=== PATIENT | female | born 1935 | race Caucasian/White ===

== ENCOUNTER 2017-07-08 00:15 | Observation (INO) | payer MEDICARE, BC ==
[2017-07-08] VITALS (13 sets, daily range): BP systolic 155–189; BP diastolic 65–85
[~2017-07-08] VITALS: Ht 160 cm; Wt 56.2 kg
[~2017-07-08 00:15] MED LIST: ACET-1966 PO; AMLO-96 PO; CALC3.7S6; CEPH-13 PO; CYCL10TA29 PO; HYDR-4309 PO; INDO50CA92 PO; LOSA50TA72 PO; POLY17PO25 PO; TRAM-420 PO
[2017-07-08] MEDS ORDERED: ONDANSETRON 4 MG/2 ML VIAL ONE (08:45)
[2017-07-08] MEDS ORDERED: PROPOFOL EMUL(*) 10MG/ML 20 ML 20 ML ONE (08:45)
[2017-07-08] MEDS ORDERED: DEXAMETHASONE SOD 4 MG/ML VIAL ONE (08:45)
[2017-07-08] MEDS ORDERED: LIDOCAINE MPF 1% 5 ML VIAL ONE (08:45)
[2017-07-08] MEDS ORDERED: fentaNYL CITR 250 MCG/5 ML AMP ONE ×2 (08:48)
[2017-07-08] MEDS ORDERED: BUPIVACAIN 0.25% INJ 50ML VIAL ONE (10:06)
[2017-07-08] MEDS ORDERED: THROMBIN (BOVINE) 20,000 UNIT VIAL ONE (10:07)
[2017-07-08] MEDS ORDERED: LIDOCAINE/SOD BICARB 8.4% SYR ID ONE (10:30)
[2017-07-08] MEDS ORDERED: FAMOTIDINE 20 MG TAB PO ONE (10:30)
[2017-07-08] MEDS ORDERED: MIDAZOLAM 2 MG/2 ML VIAL IVP ONE (10:30)
[2017-07-08] MEDS ORDERED: NORMOSOL R SOLN(*) 1000 ML BAG 1,000 ML IV PRN (10:30)
[2017-07-08] MEDS ORDERED: ceFAZolin(*) 2GM/D5W 50ML 50 ML IVPB ONE (10:30)
[2017-07-08] MEDS ORDERED: SUGAMMADEX SOD 200 MG/2 ML SDV ONE (11:09)
[2017-07-08] MEDS ORDERED: ROCURONIUM BROM 10 MG/ML 5 ML ONE (11:15)
[2017-07-08] MEDS ORDERED: ESMOLOL 10 MG/ML 10ML SDV ONE (11:32)
[2017-07-08] MEDS ORDERED: NS 0.9% 20 ML SDV 20 ML ONE (12:02)
--- NOTE | 2017-07-08 13:22 | RADIOLOGY IMAGING REPORT ---
FACILITY: [facility] PATIENT NAME: Hamida De Luna : 1935 MR: [id number] V: [id number] EXAM DATE: ORDERING PHYSICIAN: SOL NATARAJAN TECHNOLOGIST: Location: [facility] Patient: Hamida De Luna : 1935 Visit/Account:[id number] Date of Sevice: 07/08/2017 LUMBAR SPINE 1 VIEW Provided history: L4-5 LAMINECTOMY Additional pertinent history: none Views obtained: 2 lateral views COMPARISON STUDIES: 09/11/16 FINDINGS: 2 intraoperative lateral views are received. First view demonstrates a probe posteriorly at the mid L3 level. Second view demonstrates a probe at the lower L4 level overlying the L4 spinous process. There is a moderate anterior compression deformity at the L1 level that is new from 09/11/16. Margin s are relatively smooth. IMPRESSION: 1. Second lateralizing view demonstrates the tip of the probe over the mid L4 level. 2. Moderate anterior compression deformity at L1 is new from 09/11/16. Report Dictated By: Nish Garza MD at 07/08/2017 1:16 PM Report E-Signed By: Nish Garza MD at 07/08/2017 1:18 PM [id number]
[2017-07-08] MEDS ORDERED: fentaNYL CITR 100 MCG/2 ML AMP ONE (13:30)
[2017-07-08] MEDS ORDERED: BENZOCAINE/MENTHOL 1 EACH LOZG PO PRN (13:35)
[2017-07-08] MEDS ORDERED: ACETAMINOPHEN(*)1000 MG/100 ML 100 ML IVPB PRN (13:35)
[2017-07-08] MEDS ORDERED: diphenhydrAMINE 25 MG CAP PO PRN (13:35)
[2017-07-08] MEDS ORDERED: BISACODYL 10 MG SUPP PR PRN (13:35)
[2017-07-08] MEDS ORDERED: MAGNESIUM HYDROXIDE* 30ML UDCP PO PRN (13:35)
[2017-07-08] MEDS ORDERED: oxyCODONE HCL 5 MG CAP PO PRN (13:35)
[2017-07-08] MEDS ORDERED: ACETAMINOPHEN 500 MG TAB PO PRN (13:35)
[2017-07-08] MEDS ORDERED: ONDANSETRON 4 MG/2 ML VIAL IVP PRN (13:35)
[2017-07-08] MEDS ORDERED: FLUSH 10 ML SYR IVP PRN (13:35)
[2017-07-08] MEDS ORDERED: LR(*) 1000 ML BAG 1,000 ML IV PRN (13:35)
[2017-07-08] MEDS ORDERED: HYDROmorphone HCL 2 MG/ML SDV IVP PRN (13:35)
[2017-07-08] MEDS ORDERED: DIAZEPAM 5 MG TAB PO PRN (13:35)
--- NOTE | 2017-07-08 15:05 | Hospitalist Progress Note ---
Subjective Progress Notes Subjective Patient seen post-op. Reviewed PMHx (HTN) and medications (losartan). At present she only c/o some pain in surgical site. No CP/SOB/N/V. Physical Exam Vital Signs Date Time Temp Pulse Resp B/P (MAP) Pulse Ox O2 Delivery O2 Flow Rate FiO2 07/08/17 14:50 91 07/08/17 14:45 59 16 167/72 (103) Nasal Cannula 0.5 07/08/17 14:21 96.9 Intake and Output 07/09/17 07:00 Intake Total 1550 ml Balance 1550 ml Intake IV Total 1550 ml # Voids 1 General Appearance: Alert, Awake Cardiovascular: Regular Rate and Rhythm Respiratory: Clear to Auscultation Assessment and Plan Problems: (1) HTN (hypertension) Status: Chronic Assessment & Plan: Will monitor BPs and resume her losartan as needed. Exam Sepsis Risk: No Definite Risk RADHA SOW MD Jul 08, 2017 15:05
--- NOTE | 2017-07-08 19:28 | OPERATIVE REPORT 1 ---
EVENT DATE: July 08, 2017 SURGEON: Alvarez Levine MD ANESTHESIOLOGIST: Alessandro Slater MD ANESTHESIA: General endotracheal anesthesia. PATTERN ATTENDANT: Dusty Lee PA-C PREOPERATIVE DIAGNOSIS L4-L5 spinal stenosis with neurogenic claudication. POSTOPERATIVE DIAGNOSIS L4-L5 spinal stenosis with neurogenic claudication. PROCEDURE PERFORMED L4-L5 laminectomy. INTRAVENOUS FLUIDS 900 mL ESTIMATED BLOOD LOSS 50 mL IMPLANTS None. SPECIMENS None. DRAINS None. COMPLICATIONS None. DISPOSITION Post-anesthesia care unit. INDICATIONS FOR SURGERY Ms. De Luna is an 82-year-old female who presented with left greater than right lower extremity radiating pain, numbness, and tingling. She had decreased walking tolerance secondary to her leg symptoms. Her physical examination was essentially normal, but her imaging studies showed moderate-to- severe bilateral lateral recess and foraminal stenosis at the L4-L5 level. Secondary to ongoing symptoms despite physical therapy, medications, and activity modification, Ms. De Luna was offered and elected to undergo L4-L5 laminectomy. CONSENT Prior to surgery, I explained in detail to the patient the possible risks of surgery including the risk of nerve injury, persistent and/or worsening pain, spinal fluid leak, infection and/or meningitis, excessive bleeding, paralysis, , blindness, sexual dysfunction, blood vessel injury, injury to neighboring organs, need for further surgery, bowel and bladder dysfunction, autonomic nervous system dysfunction, instability, and potential for unforeseen medical and surgical complications. An understanding that in general spinal surgery is more predictive in improving extremity discomfort than actual spine pain and arresting the progression of spinal cord dysfunction rather than improving it was stressed. DESCRIPTION OF PROCEDURE On the day of surgery, the patient was met in the preop hold area, and all questions were answered. She was then taken to the operating room, and after identification of the patient and the operative site, administration of antibiotics, and completion of anesthesia, the patient was prepped and draped in the prone position on a Mike table. During this time and the entire operation, care was taken to maintain appropriate perfusion pressures during anesthesia. All bony protuberances and soft tissues were well padded in the standard fashion. Pre- and intraoperatively, prophylactic antibiotics were administered according to the appropriate timing schedule. At the conclusion of the procedure, the sponge and needle counts were correct times two. Final timeout was undertaken by the members of the operating team. We confirmed correct patient, correct levels, and correct surgery. An incision was then made in the skin over the intended surgical levels, and dissection was carried down through the subcutaneous tissues to the level of the deep fascia. The deep fascia was elevated off the posterior elements in a subperiosteal manner. An intraoperative radiograph was obtained to confirm correct spinal level. Once the appropriate spinal levels were identified with intraoperative imaging, a rongeur was used to remove the spinous process of L4. Once this was completed , the laminae were thinned bilaterally with the use of a rongeur. A small curette was then used to undermine the insertion of the ligamentum flavum on the inferior aspect of the L4 lamina. All dural adhesions were freed from the surrounding bone and ligaments with the use of a [place] prior to the use of a Kerrison punch. A 4.0 Kerrison punch was then used to perform a midline decompression. A bilateral lateral recess decompression was performed with the 3.0 and 4.0 Kerrison rongeurs to decompress thoroughly the lateral recess at L4- L5, followed by foraminotomies of the L4 nerve roots. An angled dura elevator was then passed around the exiting nerve roots at L4 and L5 to confirm they were free without any compression. Once the decompression was completed, meticulous hemostasis was obtained. The wound was irrigated with copious sterile saline solution and then closed in layers using interrupted sutures for the deep fascia, interrupted sutures for the subcutaneous tissue, and a running subcuticular skin stitch. Sponge and needle counts were correct times two. POSTOPERATIVE CARE PLAN The patient will remain in the hospital overnight and until she is ambulating freely, tolerating p.o., voiding spontaneously, and has good pain control on oral pain meds. She will then be discharged home and will follow up with me in two weeks' time for wound check and examination. JESSICA
[2017-07-08] MEDS: ceFAZolin(*) 2GM/D5W 50ML 50 ML IVPB SCH (20:45)
[2017-07-08] MEDS: DOCUSATE SODIUM 100 MG CAP PO SCH (20:45)
[2017-07-08] MEDS: APAP/HYDROCODONE 325/5 TAB PO PRN (20:46)
[2017-07-09] MEDS: APAP/HYDROCODONE 325/5 TAB PO PRN (03:58)
[2017-07-09] MEDS: ceFAZolin(*) 2GM/D5W 50ML 50 ML IVPB SCH (03:59)
[2017-07-09 04:07] VITALS: BP 135/61
[2017-07-09 07:29] VITALS: BP 155/76
[2017-07-09] MEDS ORDERED: DOCU240C84 PO (07:35)
[2017-07-09] MEDS ORDERED: DIA5 PO (07:37)
[2017-07-09] MEDS ORDERED: HYDR-385 PO (07:38)
--- NOTE | 2017-07-09 07:52 | Hospitalist Progress Note ---
Subjective Progress Notes Subjective She reports doing well. No complaints this AM. Physical Exam Vital Signs Date Time Temp Pulse Resp B/P (MAP) Pulse Ox O2 Delivery O2 Flow Rate FiO2 07/09/17 07:33 91 Room Air 07/09/17 07:29 97.3 60 18 155/76 (102) 0.5 General Appearance: Alert, Awake Cardiovascular: Regular Rate and Rhythm Respiratory: Clear to Auscultation Assessment and Plan Problems: (1) HTN (hypertension) Status: Chronic Assessment & Plan: Continue her losartan. Exam Sepsis Risk: No Definite Risk RADHA SOW MD Jul 09, 2017 07:52
[2017-07-09] MEDS: DOCUSATE SODIUM 100 MG CAP PO SCH (08:16)
[2017-07-09] MEDS ORDERED: LOSARTAN POTASSIUM 50 MG TAB PO SCH (09:00)
[2017-07-09 09:03] VITALS: Ht 160 cm; Wt 56.2 kg
== END 2017-07-09 07:39 | disposition home or self-care (01) ==
LOC: OR 00:15 → MED 14:15
PROVIDERS: ADMIT Orthopaedic Surgery; ATTEND Orthopaedic Surgery
DX: M48.062 Spinal stenosis, lumbar region with neurogenic claudication (principal)
CPT/HCPCS: 63030; 72020; 97116; 97161; 97530; A9270; G0378; J1100; J2001; J2405; J2704; J3010; J3490; J7050; J0690

== ENCOUNTER 2017-07-23 10:12 | Emergency (ER) | payer MEDICARE, BC ==
[2017-07-09 09:03] VITALS: Ht 160 cm; Wt 56.2 kg
[~2017-07-23] VITALS: Ht 160 cm; Wt 56.2 kg
[~2017-07-23 10:12] MED LIST changes: +DIA5 PO; +DOCU240C84 PO; +HYDR-385 PO
--- NOTE | 2017-07-23 10:40 | ER Report ---
History and Physical Time Seen By MD: 10:39 Hx. of Stated Complaint: PT HAD A LAMINECTOMY LAST WEEK; HAS FALLEN AT HOME SEVERAL TIMES SINCE, DENIES HITTING HEAD OR ANY LOC HPI/ROS This is an otherwise very active 79-year-old female who underwent a laminectomy approximately one week ago. She was given hydrocodone for pain control. For the past few days she has noted that she feels unsteady and somewhat lightheaded when ambulating. She had 3 falls at home, and currently complains of very mild pain in her right hip. She is able to ambulate with pain. Other injuries. She realized yesterday that it could be narcotics making her feel unsteady so she stopped taking the narcotics at which time she felt better. Came to the ED juts to make sure she was otherwise okay. Allergies: Coded Allergies: No Known Drug Allergies (Unverified , 07/01/17) Home Meds Reported Medications Hydrocodone Bit/Acetaminophen (HYDROCODON-ACETAMINOPHEN 5-325) 1 Each Tablet, 1- 2 EACH PO Q6H Y for PAIN, #12 TAB 07/09/17 Losartan Potassium (LOSARTAN POTASSIUM) 50 Mg Tablet, 0.5 TAB PO QDAY 07/01/17 Discontinued Reported Medications Diazepam (VALIUM) 5 Mg Tablet, 5 MG PO Q8H Y for SPASMS, #15 TAB 07/09/17 Docusate Calcium (SURFAK) 240 Mg Capsule, 240 MG PO DAILY, CAPSULE 07/09/17 Hx Smoking: Yes (5 cig per day) Smoking Status: Current: Every Day Smoker, Light Tobacco Smoker Exposure to Second Hand Smoke?: Yes Hx Substance Use Disorder: No Hx Alcohol Use: Yes Constitutional Vital Sign - Last 24 Hours 07/23/17 07/23/17 07/23/17 07/23/17 10:12 10:20 10:27 10:30 Temp 97.7 Pulse ??? 77 ??? Resp 18 B/P (MAP) 163/81 163/81 (108) 152/84 (106) Pulse Ox 90 O2 Delivery Room Air 07/23/17 07/23/17 07/23/17 07/23/17 10:42 10:57 11:00 11:12 Pulse 72 68 66 B/P (MAP) 157/79 (105) Pulse Ox 91 94 93 07/23/17 07/23/17 07/23/17/18/18 11:27 11:30 11:42 11:47 Pulse 68 ? B/P (MAP) 159/76 (103) Pulse Ox 93 07/23/17 07/23/17 07/23/17 07/23/17 12:00 12:02 12:17 12:30 Pulse ? B/P (MAP) ???/??? (1665) ???/??? (1665) 07/23/17 07/23/17 07/23/17 07/23/17 12:32 12:47 13:02 13:03 Pulse ? B/P (MAP) 147/141 (143) 07/23/17 13:17 Pulse ??? Physical Exam General Appearance: The patient is alert, has no immediate need for airway protection and no current signs of toxicity. Eyes: Pupils equal and round no injection. Respiratory: Chest is non tender, lungs are clear to auscultation. Cardiac: regular rate and rhythm Gastrointestinal: Abdomen is soft and non tender, no masses, bowel sounds normal. Musculoskeletal: Well healing surgical incision on l-spine Neck: Neck is supple and non tender. Extremities have full range of motion and are non tender. Skin: No rashes or lesions. DIFFERENTIAL DIAGNOSIS: After history and physical exam differential diagnosis was considered for weakness including but not limited to electrolyte abnormality , depression, anxiety, CVA, spinal cord abnormality, and infectious causes. Medical Decision Making Data Points Result Diagram: 07/23/17 1145 07/23/17 1145 Laboratory Hematology Test 07/23/17 11:40 07/23/17 11:45 Urine Color Yellow Urine Clarity Clear Urine pH 7.0 pH (4.8-9.5) Urine Specific [place] 1.011 Urine Protein 30 mg/dL (NEGATIVE) Urine Glucose (UA) Negative mg/dL (NEGATIVE) Urine Ketones Negative mg/dL (NEGATIVE) Urine Blood Negative (NEGATIVE) Urine Nitrite Negative (NEGATIVE) Urine Bilirubin Negative (NEGATIVE) Urine Urobilinogen Negative mg/dL (0.2-1.9) Urine Leukocyte Esterase Negative (NEGATIVE) Urine RBC 1 /HPF (0-2/HPF) Urine WBC 1 /HPF (0-5/HPF) Urine Squamous Epithelial Cells None /LPF (NONE-FEW) Urine Bacteria Negative /HPF (NONE-FEW) Urine Mucus None /HPF (NONE-FEW) Red Blood Count 4.19 M/uL (4.17-5.56) Mean Corpuscular Volume 94.0 fL (80.0-96.0) Mean Corpuscular Hemoglobin 31.6 pg (26.0-33.0) Mean Corpuscular Hemoglobin Concent 33.6 g/dL (32.0-36.0) Red Cell Distribution Width 13.4 % (11.5-14.5) Mean Platelet Volume 8.5 fL (7.2-11.1) Neutrophils (%) (Auto) 64.2 % (39.4-72.5) Lymphocytes (%) (Auto) 24.1 % (17.6-49.6) Monocytes (%) (Auto) 6.8 % (4.1-12.4) Eosinophils (%) (Auto) 3.9 % (0.4-6.7) Basophils (%) (Auto) 1.0 % (0.3-1.4) Nucleated RBC Relative Count (auto) 0.0 /100WBC Neutrophils # (Auto) 4.4 K/uL (2.0-7.4) Lymphocytes # (Auto) 1.7 K/uL (1.3-3.6) Monocytes # (Auto) 0.5 K/uL (0.3-1.0) Eosinophils # (Auto) 0.3 K/uL (0.0-0.5) Basophils # (Auto) 0.1 K/uL (0.0-0.1) Nucleated RBC Absolute Count (auto) 0.00 K/uL Sodium Level 139 mmol/L (137-145) Potassium Level 4.6 mmol/L (3.5-5.0) Chloride Level 103 mmol/L (98-107) Carbon Dioxide Level 26 mmol/L (22-31) Blood Urea Nitrogen 14 mg/dl (7-18) Creatinine 0.80 mg/dl (0.52-1.04) Glomerular Filtration Rate Calc > 60.0 Random Glucose 100 mg/dl (75-110) Calcium Level 9.6 mg/dl (8.4-10.2) Total Bilirubin 0.7 mg/dl (0.2-1.3) Aspartate Amino Transf (AST/SGOT) 27 U/L (0-35) Alanine Aminotransferase (ALT/SGPT) 35 U/L (0-56) Alkaline Phosphatase 149 U/L (0-126) Total Protein 8.0 gm/dl (6.3-8.2) Albumin 4.1 g/dl (3.5-5.0) Chemistry Test 07/23/17 11:40 07/23/17 11:45 Urine Color Yellow Urine Clarity Clear Urine pH 7.0 pH (4.8-9.5) Urine Specific [place] 1.011 Urine Protein 30 mg/dL (NEGATIVE) Urine Glucose (UA) Negative mg/dL (NEGATIVE) Urine Ketones Negative mg/dL (NEGATIVE) Urine Blood Negative (NEGATIVE) Urine Nitrite Negative (NEGATIVE) Urine Bilirubin Negative (NEGATIVE) Urine Urobilinogen Negative mg/dL (0.2-1.9) Urine Leukocyte Esterase Negative (NEGATIVE) Urine RBC 1 /HPF (0-2/HPF) Urine WBC 1 /HPF (0-5/HPF) Urine Squamous Epithelial Cells None /LPF (NONE-FEW) Urine Bacteria Negative /HPF (NONE-FEW) Urine Mucus None /HPF (NONE-FEW) White Blood Count 6.9 k/uL (4.5-11.0) Red Blood Count 4.19 M/uL (4.17-5.56) Hemoglobin 13.2 g/dL (12.0-16.0) Hematocrit 39.4 % (34.0-47.0) Mean Corpuscular Volume 94.0 fL (80.0-96.0) Mean Corpuscular Hemoglobin 31.6 pg (26.0-33.0) Mean Corpuscular Hemoglobin Concent 33.6 g/dL (32.0-36.0) Red Cell Distribution Width 13.4 % (11.5-14.5) Platelet Count 281 K/uL (150-450) Mean Platelet Volume 8.5 fL (7.2-11.1) Neutrophils (%) (Auto) 64.2 % (39.4-72.5) Lymphocytes (%) (Auto) 24.1 % (17.6-49.6) Monocytes (%) (Auto) 6.8 % (4.1-12.4) Eosinophils (%) (Auto) 3.9 % (0.4-6.7) Basophils (%) (Auto) 1.0 % (0.3-1.4) Nucleated RBC Relative Count (auto) 0.0 /100WBC Neutrophils # (Auto) 4.4 K/uL (2.0-7.4) Lymphocytes # (Auto) 1.7 K/uL (1.3-3.6) Monocytes # (Auto) 0.5 K/uL (0.3-1.0) Eosinophils # (Auto) 0.3 K/uL (0.0-0.5) Basophils # (Auto) 0.1 K/uL (0.0-0.1) Nucleated RBC Absolute Count (auto) 0.00 K/uL Glomerular Filtration Rate Calc > 60.0 Calcium Level 9.6 mg/dl (8.4-10.2) Total Bilirubin 0.7 mg/dl (0.2-1.3) Aspartate Amino Transf (AST/SGOT) 27 U/L (0-35) Alanine Aminotransferase (ALT/SGPT) 35 U/L (0-56) Alkaline Phosphatase 149 U/L (0-126) Total Protein 8.0 gm/dl (6.3-8.2) Albumin 4.1 g/dl (3.5-5.0) Urinalysis Test 07/23/17 11:40 Urine Color Yellow Urine Clarity Clear Urine pH 7.0 pH (4.8-9.5) Urine Specific [place] 1.011 Urine Protein 30 mg/dL (NEGATIVE) Urine Glucose (UA) Negative mg/dL (NEGATIVE) Urine Ketones Negative mg/dL (NEGATIVE) Urine Blood Negative (NEGATIVE) Urine Nitrite Negative (NEGATIVE) Urine Bilirubin Negative (NEGATIVE) Urine Urobilinogen Negative mg/dL (0.2-1.9) Urine Leukocyte Esterase Negative (NEGATIVE) Urine RBC 1 /HPF (0-2/HPF) Urine WBC 1 /HPF (0-5/HPF) Urine Squamous Epithelial Cells None /LPF (NONE-FEW) Urine Bacteria Negative /HPF (NONE-FEW) Urine Mucus None /HPF (NONE-FEW) ED Course/Re-evaluation ED Course The patient's symptoms have improved. Her surgical incision does not look infected. She has no focal neurologic deficits or complaints. Her labs to include a UA within normal limits. She is walking around the emergency department with a brisk gait and not feeling unsteady. She was given 1 g of Tylenol for pain and will continue with Tylenol 1 g 3 times a day for pain, and stop taking the hydrocodone. We are in agreement that it was likely the hydrocodone causing her symptoms. Decision to Disposition Date: Jul 23, 2017 Decision to Disposition Time: 13:07 Depart Departure Latest Vital Signs Vital Signs Date Time Temp Pulse Resp B/P (MAP) Pulse Ox O2 Delivery O2 Flow Rate FiO2 07/23/17 13:17 ??? 07/23/17 13:03 147/141 (143) 07/23/17 11:27 93 07/23/17 10:20 97.7 18 Room Air Impression: Primary Impression: Lightheaded Condition: Improved Disposition: HOME OR SELF-CARE Referrals: ATUL ACOSTA DO (PCP) Patient Instructions: Lightheadedness (ED) Additional Instructions: STOP TAKING THE HYDROCODONE, AND INSTEAD START TAKING TYLENOL 1G THREE TIMES A DAY NIDIA BALL MD Jul 23, 2017 10:40
[2017-07-23 11:55] LABS: PLATELET COUNT, AUTOMATED 281 K/uL (150-450)
--- NOTE | 2017-07-23 12:21 | RADIOLOGY IMAGING REPORT ---
FACILITY: [facility] PATIENT NAME: Hamida De Luna : 1935 MR: [id number] V: [id number] EXAM DATE: ORDERING PHYSICIAN: NIDIA BALL TECHNOLOG[place] [facility] [place] : 1935 Visit/Account:[id number] Date of Sevice: 07/23/2017 EXAMINATION: Head CT without intravenous contrast HISTORY: Trauma. Several falls. TECHNIQUE: Axial images were obtained from the skull base to the vertex without intravenous contrast . Sagittal and coronal reformatted images are also submitted. One of the following dose optimization techniques was utilized in the performance of this exam: Autom ated exposure control; adjustment of the mA and/or kV according to the patient's size; or use of an i terative reconstruction technique. Specific details can be referenced in the facility's radiology C T exam operational policy. COMPARISON: None. FINDINGS: Brain volume: Mild brain parenchymal volume loss. Ventricles: No hydrocephalus. Acute ischemic changes: None. Hemorrhage: None. Masses / edema: None. Amaya-white: Negative. White matter: Moderate chronic small vessel ischemic changes. Vessels: Carotid siphon and vertebral artery calcifications. Normal density in the dural venous sinu ses. Extra-axial: Negative. Calvarium / skull base: Negative. Visualized sinuses / orbits: Negative. IMPRESSION: No acute intracranial abnormality. Report Dictated By: Elias Ellis MD at 07/23/2017 12:12 PM Report E-Signed By: Elias Ellis MD at 07/23/2017 12:17 PM WSN:[id number]
--- NOTE | 2017-07-23 12:49 | RADIOLOGY IMAGING REPORT ---
[place] [facility] [place] Hamida De [place] : 1935 MR: [id number] V: [id number] EXAM DATE: ORDERING PHYSICIAN: NIDIA BALL TECHNOLOGIST: Location: [facility] Patient: Hamida De Luna : 1935 Visit/Account:[id number] Date of Sevice: 07/23/2017 HIP RIGHT Indication: Hip pain. Comparison: None available Findings: There is no acute fracture or dislocation of the right hip. The pelvis is intact. 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 The bones ar e diffusely osteopenic. Extensive vascular calcifications are seen. IMPRESSION: 1. No acute osseous abnormality right hip as above Report Dictated By: Al Driver at 07/23/2017 12:43 PM Report E-Signed By: Al Drivre at 07/23/2017 12:44 PM WSN:[id number]
[2017-07-23 13:03] VITALS: BP 147/141
== END 2017-07-23 13:30 | disposition home or self-care (01) ==
LOC: ER 10:14
DX: R42 Dizziness and giddiness (principal)
CPT/HCPCS: 70450; 73502; 81001; 85025; 99283; A4353; 82040; 82247; 82310; 82374; 82435; 82565; 82947; 84075; 84132; 84155; 84295; 84450; 84460; 84520

== ENCOUNTER 2017-07-29 08:37 | Emergency (ER) | payer MEDICARE, BC ==
[2017-07-09 09:03] VITALS: Ht 162.6 cm; Wt 61.2 kg
[~2017-07-29] VITALS: Ht 162.6 cm; Wt 61.2 kg
[2017-07-29] MEDS ORDERED: IBUPROFEN 200 MG TAB PO ONE (10:10)
[2017-07-29] MEDS ORDERED: METHOCARBAMOL 500 MG TAB PO ONE (10:10)
[2017-07-29 11:40] VITALS: BP 144/68
== END 2017-07-29 11:44 | disposition home or self-care (01) ==
LOC: ER 10:23
DX: M54.31 Sciatica, right side (principal)
CPT/HCPCS: 81001; 87088; 99283; A9270

== ENCOUNTER 2018-07-03 20:56 | Inpatient (IN) | payer MEDICARE, BC ==
[~2018-07-03] VITALS: Ht 157.5 cm; Wt 55.1 kg
[~2018-07-03 20:56] MED LIST changes: -AMOX-559 PO; -CLOB15CR22 TP; -LISI-374 PO
--- NOTE | 2018-07-03 20:59 | ER Report ---
History and Physical Time Seen By MD: 20:59 HPI/ROS CHIEF COMPLAINT: Cough, left lower quadrant abdominal pain, hypoxia HISTORY OF PRESENT ILLNESS: Patient is an 83-year-old female here with complaints of cough 2 weeks, found to be hypoxic 83% on room air, left lower quadrant abdominal pain which started approximately 1300 today with associated diarrhea. Patient reports that the abdominal pain has been persistent, nonradiating. She also has a cough productive of yellow/white sputum. Patient reports having history of hypertension currently taking a medication which she cannot recall. She is alert and oriented, mildly tachypneic, nontoxic in appearance. REVIEW OF SYSTEMS: Constitutional: No fever, no chills. Eyes: No discharge. ENT: No sore throat. Cardiovascular: No chest pain, no palpitations. Respiratory: + cough, + shortness of breath. Gastrointestinal: + LLQ abdominal pain, + diarrhea, no vomiting. Genitourinary: No hematuria. Musculoskeletal: No back pain. Skin: No rashes. Neurological: No headache. Allergies: Coded Allergies: No Known Drug Allergies (Unverified , 07/03/18) Home Meds Reported Medications Lisinopril (LISINOPRIL) 40 Mg Tablet, 1 TAB PO QDAY 07/03/18 Discontinued Reported Medications Hydrocodone Bit/Acetaminophen (HYDROCODON-ACETAMINOPHEN 5-325) 1 Each Tablet, 1- 2 EACH PO Q6H PRN for PAIN, #12 TAB 07/09/17 Losartan Potassium (LOSARTAN POTASSIUM) 50 Mg Tablet, 0.5 TAB PO QDAY 07/01/17 Hx Smoking: Yes (5 cig per day) Smoking Status: Current: Every Day Smoker, Light Tobacco Smoker Exposure to Second Hand Smoke?: Yes Hx Substance Use Disorder: No Hx Alcohol Use: Yes Constitutional Vital Sign - Last 24 Hours 07/03/18 07/03/18 07/03/18 07/03/18 21:02 21:11 21:23 21:26 Temp 98.6 Pulse 84 71 68 Resp 28 B/P (MAP) 180/87 150/79 (102) Pulse Ox 84 98 98 O2 Delivery Room Air 07/03/18 07/03/18 07/03/18 07/03/18 21:27 21:27 21:27 21:30 Pulse 67 Resp 20 B/P (MAP) 159/105 (123) Pulse Ox 96 O2 Delivery Nasal Cannula O2 Flow Rate 2.0 2.0 07/03/18 07/03/18 07/03/18 07/03/18 21:35 21:37 22:20 22:25 Pulse 75 77 76 72 Resp 20 Pulse Ox 99 91 98 07/03/18 07/03/18 07/03/18 07/03/18 22:30 22:35 22:45 22:50 Pulse 71 80 77 B/P (MAP) 211/90 (130) 186/83 (117) Pulse Ox 92 95 91 07/03/18 07/03/18 07/03/18 07/03/18 22:55 22:57 23:00 23:05 Pulse 74 69 73 B/P (MAP) 150/67 (94) Pulse Ox 95 92 96 O2 Flow Rate 1.0 Physical Exam General Appearance: The patient is alert, has no immediate need for airway protection and no signs of toxicity. NAD Eyes: Pupils equal and round no pallor or injection. ENT, Mouth: Mucous membranes are moist. Respiratory: + crackles b/l Cardiovascular: Regular rate and rhythm. Gastrointestinal: Abdomen is soft and + tender LLQ with no rebound or guarding, no masses, bowel sounds normal. Neurological: No focal neuro deficits Skin: Warm and dry, no rashes. Musculoskeletal: Neck is supple non tender. Extremities are nontender, nonswollen and have full range of motion. DIFFERENTIAL DIAGNOSIS: After history and physical exam differential diagnosis was considered for abdominal pain including but not limited to appendicitis, cholecystitis, gastritis and urinary tract infection, pneumonia, bronchitis, influenza Medical Decision Making Data Points Result Diagram: 07/03/18210907/03/182109 Laboratory Hematology Test 07/03/18 21:10 07/03/18 21:19 Red Blood Count 4.71 M/uL (4.17-5.56) Mean Corpuscular Volume 94.2 fL (80.0-96.0) Mean Corpuscular Hemoglobin 31.5 pg (26.0-33.0) Mean Corpuscular Hemoglobin Concent 33.5 g/dL (32.0-36.0) Red Cell Distribution Width 14.6 % (11.5-14.5) Mean Platelet Volume 9.5 fL (7.2-11.1) Neutrophils (%) (Auto) 80.9 % (39.4-72.5) Lymphocytes (%) (Auto) 14.7 % (17.6-49.6) Monocytes (%) (Auto) 3.5 % (4.1-12.4) Eosinophils (%) (Auto) 0.6 % (0.4-6.7) Basophils (%) (Auto) 0.3 % (0.3-1.4) Nucleated RBC Relative Count (auto) 0.2 /100WBC Neutrophils # (Auto) 7.9 K/uL (2.0-7.4) Lymphocytes # (Auto) 1.4 K/uL (1.3-3.6) Monocytes # (Auto) 0.3 K/uL (0.3-1.0) Eosinophils # (Auto) 0.1 K/uL (0.0-0.5) Basophils # (Auto) 0.0 K/uL (0.0-0.1) Nucleated RBC Absolute Count (auto) 0.02 K/uL Prothrombin Time 12.8 seconds (12.0-14.4) Prothromb Time International Ratio 0.97 Activated Partial Thromboplast Time 27 seconds (23-35) Sodium Level 139 mmol/L (137-145) Potassium Level 4.4 mmol/L (3.5-5.0) Chloride Level 102 mmol/L (98-107) Carbon Dioxide Level 22 mmol/L (22-31) Blood Urea Nitrogen 23 mg/dl (7-18) Creatinine 1.00 mg/dl (0.52-1.04) Glomerular Filtration Rate Calc 52.8 Random Glucose 159 mg/dl (75-110) Lactate 1.7 mmol/L (0.7-2.1) Calcium Level 10.0 mg/dl (8.4-10.2) Total Bilirubin 0.9 mg/dl (0.2-1.3) Aspartate Amino Transf (AST/SGOT) 22 U/L (0-35) Alanine Aminotransferase (ALT/SGPT) 21 U/L (0-56) Alkaline Phosphatase 119 U/L (0-126) Total Protein 8.4 g/dl (6.3-8.2) Albumin 4.4 g/dl (3.5-5.0) Lipase 81 U/L (23-300) Influenza Virus Type A (PCR) Negative (NEGATIVE) Influenza Virus Type B (PCR) Negative (NEGATIVE) Chemistry Test 07/03/18 21:10 07/03/18 21:19 White Blood Count 9.7 k/uL (4.5-11.0) Red Blood Count 4.71 M/uL (4.17-5.56) Hemoglobin 14.8 g/dL (12.0-16.0) Hematocrit 44.3 % (34.0-47.0) Mean Corpuscular Volume 94.2 fL (80.0-96.0) Mean Corpuscular Hemoglobin 31.5 pg (26.0-33.0) Mean Corpuscular Hemoglobin Concent 33.5 g/dL (32.0-36.0) Red Cell Distribution Width 14.6 % (11.5-14.5) Platelet Count 260 K/uL (150-450) Mean Platelet Volume 9.5 fL (7.2-11.1) Neutrophils (%) (Auto) 80.9 % (39.4-72.5) Lymphocytes (%) (Auto) 14.7 % (17.6-49.6) Monocytes (%) (Auto) 3.5 % (4.1-12.4) Eosinophils (%) (Auto) 0.6 % (0.4-6.7) Basophils (%) (Auto) 0.3 % (0.3-1.4) Nucleated RBC Relative Count (auto) 0.2 /100WBC Neutrophils # (Auto) 7.9 K/uL (2.0-7.4) Lymphocytes # (Auto) 1.4 K/uL (1.3-3.6) Monocytes # (Auto) 0.3 K/uL (0.3-1.0) Eosinophils # (Auto) 0.1 K/uL (0.0-0.5) Basophils # (Auto) 0.0 K/uL (0.0-0.1) Nucleated RBC Absolute Count (auto) 0.02 K/uL Prothrombin Time 12.8 seconds (12.0-14.4) Prothromb Time International Ratio 0.97 Activated Partial Thromboplast Time 27 seconds (23-35) Glomerular Filtration Rate Calc 52.8 Lactate 1.7 mmol/L (0.7-2.1) Calcium Level 10.0 mg/dl (8.4-10.2) Total Bilirubin 0.9 mg/dl (0.2-1.3) Aspartate Amino Transf (AST/SGOT) 22 U/L (0-35) Alanine Aminotransferase (ALT/SGPT) 21 U/L (0-56) Alkaline Phosphatase 119 U/L (0-126) Total Protein 8.4 g/dl (6.3-8.2) Albumin 4.4 g/dl (3.5-5.0) Lipase 81 U/L (23-300) Influenza Virus Type A (PCR) Negative (NEGATIVE) Influenza Virus Type B (PCR) Negative (NEGATIVE) Coagulation Test 07/03/18 21:10 Prothrombin Time 12.8 seconds Prothromb Time International Ratio 0.97 Activated Partial Thromboplast Time 27 seconds EKG/Imaging EKG Interpretation 12 lead EKG: Sinus rhythm first-degree AV block, ventricular rate 67, QTc 505 Rhythm: normal sinus rhythm with first-degree AV block [place]: normal QRS: normal ST segments: normal Imaging Please see official radiology report ED Course/Re-evaluation ED Course Patient is an 83-year-old female here with complaints of cough, left lower quadrant abdominal pain, diarrhea. Patient was noted to be hypoxic at 83% which is a new oxygen requirement for the patient. Due to the patient's consolation symptoms decision was made to complete CT imaging of the chest abdomen pelvis blood cultures were collected. Labs were unremarkable, there is no leukocytosis and lactate was normal. CT imaging of the chest abdomen pelvis identified a left inguinal hernia with partial small bowel obstruction. Patient had her last bowel movement Thursday morning at 8:00 approximately which was loose and has not passed flatus since that time. I discussed the patient with Dr. Gunter who accepted the patient to his service. Patient was administered Zosyn, started on IV maintenance fluids. Patient was stable at time of admission. Decision to Disposition Date: Jul 03, 2018 Decision to Disposition Time: 23:19 Depart Departure Latest Vital Signs Vital Signs Date Time Temp Pulse Resp B/P (MAP) Pulse Ox O2 Delivery O2 Flow Rate FiO2 07/03/18 23:05 73 96 07/03/18 23:00 150/67 (94) 07/03/18 22:57 1.0 07/03/18 21:37 20 07/03/18 21:27 Nasal Cannula 07/03/18 21:02 98.6 Impression: Primary Impression: Small bowel obstruction, partial Condition: Improved Disposition: Admitted from ER Referrals: ATUL ACOSTA DO (PCP) REUBEN PORTER DO Jul 03, 2018 20:59
[2018-07-03] MEDS ORDERED: NS(*) 0.9% 1000 ML BAG 1,000 ML IV ONE ×2 (21:07→23:11)
[2018-07-03] MEDS ORDERED: LISI-374 PO (21:09)
[2018-07-03] MEDS ORDERED: ALBUTEROL/IPRATROPIUM 3 ML NEB NEB ONE (21:10)
[2018-07-03 21:39] LABS: INR 0.97
--- NOTE | 2018-07-03 21:41 | EKG ---
FACILITY: [facility] PATIENT NAME: MARCELINO FOX : [id number] MR: [id number] V: [id number] EXAM DATE: ORDERING PHYSICIAN: REUBEN PORTER TECHNOLOGIST: JESSICA Test Reason : DYSPNEA Blood Pressure : / mmHG Vent. Rate : 067 BPM Atrial Rate : 067 BPM P-R Int : 222 ms QRS Dur : 088 ms QT Int : 478 ms P-R-T Axes : 069 032 081 degrees QTc Int : 505 ms Sinus rhythm with 1st degree AV block Possible Left atrial enlargement Decreased R wave progression anteriorly Prolonged QT Abnormal ECG When compared with ECG of 16-JUN-2017 10:05, No significant change was found Confirmed by RADHA SOW ([id number]) on 07/04/2018 6:16:36 AM Referred By: Confirmed By:RADHA SOW
[2018-07-03 21:42] LABS: PLATELET COUNT, AUTOMATED 260 K/uL (150-450)
[2018-07-03] MEDS ORDERED: IOPAMIDOL 76% 75 ML INFUS BTL 75 ML ONE (21:53)
[2018-07-03] MEDS ORDERED: ONDANSETRON 4 MG/2 ML VIAL IVP ONE (22:40)
[2018-07-03] MEDS ORDERED: fentaNYL CITR 100 MCG/2 ML AMP IVP ONE (22:40)
[2018-07-03] MEDS ORDERED: NS(*) 0.9% 500 ML BAG 500 ML IV ONE (22:50)
[2018-07-03] MEDS ORDERED: PIPERACILLIN/TAZO*3.375GM VIAL 3.375 GM in NS(*) 0.9% 100 ML ADDVANT BAG 100 ML IVPB SCH (23:10)
[2018-07-03 23:30] VITALS: BP 161/67
[2018-07-04] VITALS (16 sets, daily range): BP systolic 121–154; BP diastolic 48–101; Ht 157.5 cm; Wt 55.1 kg
[2018-07-04] MEDS ORDERED: ONDANSETRON 4 MG/2 ML VIAL IVP PRN (00:50)
[2018-07-04] MEDS: fentaNYL CITR 100 MCG/2 ML AMP IVP PRN ×2 (01:28→03:37)
--- NOTE | 2018-07-04 02:18 | RADIOLOGY IMAGING REPORT ---
FACILITY: [facility] - [place] PATIENT NAME: Hamida De Luna : 1935 MR: [id number] V: EXAM DATE: ORDERING PHYSICIAN: REUBEN TRINH TECHNOLOGIST: Location: [facility] [place] Patient: Hamida De Luna : 1935 Visit/Account:[id number] Date of Sevice: 07/03/2018 CT of the chest, abdomen, and pelvis with contrast: Indication: Dyspnea, hypoxia, and persistent left lower quadrant pain. Technique: Helical CT was performed through the chest, abdomen, and pelvis following IV contrast enha ncement with 75 cc of Isovue-370. Multiplanar reconstructions are reviewed. One of the following dose optimization techniques was utilized in the performance of this exam: Autom ated exposure control; adjustment of the mA and/or kV according to the patient's size; or use of an i terative reconstruction technique. Specific details can be referenced in the facility's radiology CT exam operational policy. Comparison: None available. Findings: Lungs: There is generalized hyperinflation. Mild peripheral fibrosis is observed in both lungs. There appears to be a tiny nodule in the right middle lobe, measuring less than 4 mm in size. No other nod ular opacities are observed in either lung. There is no evidence of parenchymal consolidation or volu me loss. No cystic or bullous changes are observed. Pleural spaces: There is no evidence of effusion, focal thickening, calcification, or soft tissue mas s. Mediastinum: Moderate atherosclerotic calcification and plaque is present in the thoracic aorta and g reat vessels. There are no signs of aortic aneurysm or dissection. There is diffuse atherosclerotic calcification in the coronary arteries. The heart size is normal. No pericardial effusion or soft tissue abnormality is identified. A few tiny lymph nodes are present. There is no evidence of mass or fluid collection. A small hiatal hernia is incidentally noted. Liver: A few small and tiny simple cysts are present. There are no signs of solid mass. The liver is otherwise unremarkable. There is uniform enhancement of the venous structures. The liver is otherwise unremarkable. Gallbladder and biliary tree: The gallbladder appears normal in size and homogeneous in density. The bile ducts are normal in caliber. Pancreas: Normal in size, shape, and density. Spleen: Normal in size, shape, and density. Adrenal glands: Within normal limits. Kidneys: The kidneys are normal in size and shape. No focal parenchymal abnormalities are identified. There are tiny calcifications in both kidneys, which may represent nonobstructing calculi or vascula r calcifications. There are no signs of ureteral calculus or obstruction. Intestinal structures: There are multiple moderately dilated and fluid-filled loops of small intestin e in the lower abdomen and pelvis. A small portion of the small bowel appears to be trapped in a left inguinal hernia. The small bowel proximal to the hernia is dilated, and the small bowel distal to th e hernia does not appear dilated. This pattern is consistent with partial mechanical obstruction. There is moderate/marked diverticulosis in the sigmoid colon. There are no definite signs of acute di verticulitis. The colon is otherwise unremarkable, as visualized. Urinary bladder: Homogeneous and unremarkable, as visualized. Pelvic structures: The uterus and adnexal structures are unremarkable, as visualized. There is minima l free fluid in the deep pelvis, which is nonspecific. No circumscribed fluid collection or abscess i s clearly identified. Vascular structures: There is diffuse atherosclerotic calcification in the abdominal aorta and iliac arteries. The abdominal aorta measures up to 3.2 cm in diameter. There are no signs of retroperitoneal hemorrhage or soft tissue abnormality. Skeletal structures: There are chronic appearing compression deformities of the L1, L4, and L5 verteb ral bodies. There is chronic degenerative disc disease and osteophyte formation in the lower thoracic spine. The skeletal structures appear diffusely demineralized. No acute skeletal deformity is clearl y identified.IMPRESSION: There are signs of mechanical small bowel obstruction, apparently related to entrapment of a small portion of small bowel in a left inguinal hernia. No acute process is clearly identified in the chest. A preliminary report was discussed with Dr. Trinh at [facility] [place] at 2250 hours. Report Dictated By: Nish Marks MD at 07/03/2018 10:29 PM Report E-Signed By: Nish Marks MD at 07/03/2018 11:10 PM WSN:[id number]
--- NOTE | 2018-07-04 06:51 | Gen Surgery History & Physical ---
History of Present Illness Chief Complaint abd pain History of Present Illness hpi: 83 yo f with abd pain since yesterday afternoon. pain is across lower abd. pt vomited yesterday. she had a small bm yesterday. pmh/psh: htn, appendectomy, back surgery social hx: 1/2 etoh drink/night, cigs fam hx: son has dm History Home Meds Reported Medications Lisinopril (LISINOPRIL) 40 Mg Tablet, 1 TAB PO QDAY 07/03/18 Discontinued Reported Medications Hydrocodone Bit/Acetaminophen (HYDROCODON-ACETAMINOPHEN 5-325) 1 Each Tablet, 1- 2 EACH PO Q6H PRN for PAIN, #12 TAB 07/09/17 Losartan Potassium (LOSARTAN POTASSIUM) 50 Mg Tablet, 0.5 TAB PO QDAY 07/01/17 Allergies: Coded Allergies: No Known Drug Allergies (Unverified , 07/03/18) Patient History: FHx: diabetes mellitus CHILD Review of Systems Constitutional: Other (10 pt ros neg except per hpi) Exam General Appearance: Alert, Awake, No Acute Distress, Other (nausea during interview) Neuro: No Gross deficits Eyes: Other (per, eomi) ENT: Moist Mucous Membranes Cardiovascular: Other (reg rate) Respiratory: No Respiratory Distress, Other (on NC) GI: Other (mild distension, soft, some ttp chema llq, well-healed surg scar rlq) Extremities: Other (no edema) Integumentary: Skin Intact without Lesion / Mass Psych: Alert & Oriented X3, Appropriate Mood & Affect Medical Decision Making Data Points Result Diagram: 07/03/18210907/03/182109 Assessment and Plan Problems: (1) Small bowel obstruction, partial Status: Acute Assessment & Plan: secondary to left ing hernia i may have reduced it plan: pt was placed on abx because report from ed was possible diverticulitis dx lap poss sbr poss left inguinal hernia repair Venous Thromboembolism VTE Risk Physician Assess for VTE Risk: Yes Patient's VTE Risk: Low Antithrombotics Is Pt On Any Antithrombotics?: No PRIYANKA DAVENPORT Jul 04, 2018 06:51
[2018-07-04] MEDS ORDERED: ONDANSETRON 4 MG/2 ML VIAL ONE (07:25)
[2018-07-04] MEDS ORDERED: DEXAMETHASONE SOD 4 MG/ML VIAL ONE (07:25)
[2018-07-04] MEDS ORDERED: SUGAMMADEX SOD 200 MG/2 ML SDV ONE ×2 (07:25→10:43)
[2018-07-04] MEDS ORDERED: ROCURONIUM BROM 10 MG/ML 10 ML ONE (07:25)
[2018-07-04] MEDS ORDERED: fentaNYL CITR 250 MCG/5 ML AMP ONE (07:25)
[2018-07-04] MEDS ORDERED: LIDOCAINE MPF 1% 5 ML VIAL ONE (07:25)
[2018-07-04] MEDS ORDERED: PROPOFOL EMUL(*) 10MG/ML 20 ML 20 ML ONE (07:25)
[2018-07-04] MEDS ORDERED: KETAMINE HCL-NS 50 MG/5 ML SYR ONE (07:30)
[2018-07-04] MEDS ORDERED: BUPIV/EPI 0.25% 1:200,000 50ML INFIL ONE (07:37)
[2018-07-04] MEDS ORDERED: FAMOTIDINE(*) 20MG/50ML PREMIX 50 ML IVPB ONE ×2 (07:52→09:05)
[2018-07-04] MEDS ORDERED: NORMOSOL R SOLN(*) 1000 ML BAG 1,000 ML IV ONE ×2 (07:52→09:05)
[2018-07-04] MEDS: PIPERACILLIN/TAZO*3.375GM VIAL 3.375 GM in NS(*) 0.9% 100 ML ADDVANT BAG 100 ML IVPB SCH ×2 (08:22→16:21)
[2018-07-04] MEDS ORDERED: NS 0.9% IRRIGATION 1000ML PLCT IR ONE (08:26)
[2018-07-04] MEDS ORDERED: traMADol 50 MG TAB PO PRN (09:35)
--- NOTE | 2018-07-04 09:44 | Post Operative Progress Note ---
Post Operative Progress Note Date: Jul 04, 2018 Time: 09:36 Surgeon: yuki encinas md dictation #[id number] Trim Attacher: none Anesthesia: gen, local dr. mariam purvis Pre-Op Diagnosis: left ing hernia sbo Post-Op Diagnosis: same Findings: direct left ing hernia bowel viable Procedure(s): diagnostic laparoscopy laparoscopic left ing hernia repair with mesh Specimen Removed:(May be N/A): none Complications: none Fluids: iv crystalloid Estimated Blood Loss: minimal Date OP Note Dictated: Jul 04, 2018 Time OP Note Dictated: 09:43 PRIYANKA ENCINAS Jul 04, 2018 09:44
[2018-07-04] MEDS ORDERED: ALBUTEROL/IPRATROPIUM 3 ML NEB ONE (10:04)
[2018-07-04] MEDS ORDERED: ACETAMINOPHEN(*)1000 MG/100 ML 100 ML IVPB ONE (10:50)
[2018-07-04] MEDS ORDERED: DESFLURANE 240 ML BTL INH ONE (11:26)
[2018-07-04] MEDS ORDERED: ACETAMINOPHEN 325 MG TAB PO PRN (12:15)
--- NOTE | 2018-07-04 15:40 | RADIOLOGY IMAGING REPORT ---
FACILITY: [facility] PATIENT NAME: Hamida De Luna : 1935 MR: [id number] V: [id number] EXAM DATE: ORDERING PHYSICIAN: PRIYANKA DAVENPORT TECHNOLOGIST: Location: [facility] Patient: Hamida De Luna : 1935 Visit/Account:[id number] Date of Sevice: 07/04/2018 Examination: CHEST SINGLE AP Comparison: 07/03/2018 and earlier. History: Crackles, cough for 2 months Findings: Cardiac and hilar contour size is within normal limits and unchanged. Aortic atheroscleros is. Chronic interstitial disease consistent with fibrosis is redemonstrated. A hazy density now projects over the peripheral right upper lung; this was not present on yesterday's CT. No pneumothorax, fay a, or effusion. No acute osseous abnormality. IMPRESSION: 1. Chronic lung disease. 2. New hazy density projecting over the peripheral right upper lung. This was not present on yester day's CT and is favored to be a soft tissue summation artifact although correlation with any clinical evidence of a developing pneumonia is recommended. Report Dictated By: Romain Esparza MD at 07/04/2018 3:32 PM Report E-Signed By: Romain Esparza MD at 07/04/2018 3:36 PM WSN:[id number]
--- NOTE | 2018-07-04 18:30 | Hospitalist Consultation ---
History of Present Illness Requesting Physician Dr. Gunter Reason for Consult Pneumonia History of Present Illness This patient was admitted for bowel obstruction and underwent surgery earlier today. She has had increased congestion and hypoxia since admission. History Problems: (1) HTN (hypertension) Status: Chronic Home Meds Reported Medications Lisinopril (LISINOPRIL) 40 Mg Tablet, 1 TAB PO QDAY 07/03/18 Discontinued Reported Medications Hydrocodone Bit/Acetaminophen (HYDROCODON-ACETAMINOPHEN 5-325) 1 Each Tablet, 1- 2 EACH PO Q6H PRN for PAIN, #12 TAB 07/09/17 Losartan Potassium (LOSARTAN POTASSIUM) 50 Mg Tablet, 0.5 TAB PO QDAY 07/01/17 Allergies: Coded Allergies: No Known Drug Allergies (Unverified , 07/03/18) Patient History: FHx: diabetes mellitus CHILD Hx Smoking: Yes (5 cig per day) Smoking Status: Current: Every Day Smoker, Light Tobacco Smoker Exposure to Second Hand Smoke?: Yes Caffeine Intake: Coffee Caffeine/Cups Per Day: 2 c/day Hx Alcohol Use: Yes Hx Substance Use Disorder: No Social Drug Use: Never History of IV Drug Use: No Review of Systems All Systems Reviewed/Normal: Yes, Except as Noted Respiratory: No Shortness of Breath, No Cough Exam Vital Signs Vital Signs Date Time Temp Pulse Resp B/P (MAP) Pulse Ox O2 Delivery O2 Flow Rate FiO2 07/04/18 16:25 96 Nasal Cannula 1.0 07/04/18 16:00 65 18 138/60 (86) 07/04/18 15:12 98.6 Neuro: No Gross deficits Eyes: PERRLA Cardiovascular: Regular Rate and Rhythm Respiratory: Other (Crackles at left base.) Extremities: No Edema Integumentary: No Cyanosis Medical Decision Making Data Points Result Diagram: 07/03/18210907/03/182109 EKG / Imaging Imaging Chest x-ray reviewed. Assessment and Plan Problems: (1) Bacterial pneumonia Assessment & Plan: She has had increased congestion and is requiring supplemental oxygen. Her chest x-ray shows a possible early pneumonia vs. atelectasis in the left base. She is currently receiving Zosyn for post surgical coverage, but this will likely be discontinued tomorrow. She can likely transition to oral Augmentin and complete a 7 day course of treatment. Venous Thromboembolism Antithrombotics Is Pt On Any Antithrombotics?: No Exam Sepsis Risk: No Definite Risk SHELIA LOAIZA DO Jul 04, 2018 18:30
[2018-07-05] MEDS: PIPERACILLIN/TAZO*3.375GM VIAL 3.375 GM in NS(*) 0.9% 100 ML ADDVANT BAG 100 ML IVPB SCH ×2 (01:22→08:22)
[2018-07-05 03:53] VITALS: BP 142/60
--- NOTE | 2018-07-05 04:23 | OPERATIVE REPORT 1 ---
EVENT DATE: July 04, 2018 SURGEON: Rich Gunter MD ANESTHESIOLOGIST: Rene Bar MD ANESTHESIA: General and local. PREOPERATIVE DIAGNOSIS Small bowel obstruction secondary to left inguinal hernia. POSTOPERATIVE DIAGNOSIS Small bowel obstruction secondary to left inguinal hernia. PROCEDURE PERFORMED 1. Diagnostic laparoscopy. 2. Laparoscopic left inguinal hernia repair with mesh. FLUIDS IV crystalloid. ESTIMATED BLOOD LOSS Minimal. SPECIMENS None. COMPLICATIONS None. INDICATIONS This is an 83-year-old female who began having abdominal pain yesterday. She did have some vomiting. Her last bowel movement was yesterday. Imaging revealed a loop of small bowel through a left inguinal hernia defect. Her lactic acid was 1.7. Her white blood count was within normal limits. Risks and benefits of the procedure were explained, including the possibility of definitive hernia repair at this time if there was a low risk for infection. Consent was signed. DESCRIPTION OF PROCEDURE Patient was taken to the operating room, placed in the supine position. General anesthesia was administered per anesthesia team. Patient was prepped and draped in normal sterile fashion. Local analgesia was injected to the dermis above the umbilicus, and a small incision was made. A Veress needle was inserted. Pneumoperitoneum was achieved. The Veress needle was removed. A 5 mm port was advanced. This would later be exchanged for a 12 mm port. Under direct vision and after injecting local analgesia, a 5 mm right-sided port was placed. I inspected the abdomen. There was a tiny hernia defect on the right. On the left, there was a direct hernia defect. The small bowel was already reduced. I then placed a 5 mm left-sided port after injecting local analgesia and under direct vision. I inspected much of the small intestine, and it was viable. I ran the small bowel from the ileocecal valve proximally, and identified an area of transition from non-collapsed bowel to an area of more collapsed bowel, and there were no lesions in this area, no masses, and this was viable. There was no apparent colonic diverticulitis. I irrigated and suctioned in the left lower quadrant and pelvis. I then used a Harmonic to create a peritoneal flap. The hernia was reduced. The peritoneal flap was taken below the level of the iliopubic tract. It was taken to Pablo ligament. The round ligament was not divided, and the inferior epigastric vessels were preserved. I then placed a left-sided ProGrip mesh and made it to lie flat. Endo Stitch device with an absorbable V-Loc stitch was used to reapproximate the peritoneal flap. Hemostasis was assured. A cap lock was placed on the left. Fascial closure device with an 0 Vicryl stitch was used to close the fascia at the supraumbilical port site. The left-sided port was removed under direct vision. Hemostasis was assured. Pneumoperitoneum was released. Final port was removed. All skin incisions were closed with 4-0 Monocryl subcuticular stitches. More local analgesia was injected. Appropriate dressings were applied. Patient tolerated the procedure well, and there were no complications. JESSICA
[2018-07-05 07:26] VITALS: BP 149/80
--- NOTE | 2018-07-05 07:55 | General Surgery Progress Note ---
Subjective Progress Notes Subjective 83 yo f s/p lap left ing hernia repair. doing well. no vomiting. +flatus. [facility] cle[facility]. coughed up some blood. Physical Exam Vital Signs Date Time Temp Pulse Resp B/P (MAP) Pulse Ox O2 Delivery O2 Flow Rate FiO2 07/05/18 07:26 98.6 60 18 149/80 (103) 93 Nasal Cannula 1.5 Intake and Output 07/05/18 06:59 Intake Total 2337 ml Balance 2337 ml Intake Oral 970 ml IV Total 1367 ml # Voids 6 GI: Other (abd soft) Result Diagram: 07/03/18210907/03/182109 Assessment and Plan Problems: (1) Small bowel obstruction, partial Status: Acute Assessment & Plan: secondary to left ing hernia i may have reduced it plan: pt was placed on abx because report from ed was possible diverticulitis dx lap poss sbr poss left inguinal hernia repair 07/05: doing well from abd standpoint full liquid diet then adat med consulted re pulm cont abx for now likely home soon Exam Sepsis Risk: No Definite Risk PRIYANKA DAVENPORT Jul 05, 2018 07:55
[2018-07-05] MEDS ORDERED: SALINE 0.65% NAS SPR 44 ML BTL PRN (08:00)
[2018-07-05] MEDS: ALBUTEROL/IPRATROPIUM 3 ML NEB NEB SCH ×3 (08:35→17:19)
[2018-07-05 08:36] LABS: PLATELET COUNT, AUTOMATED 162 K/uL (150-450)
[2018-07-05] MEDS ORDERED: AMOX-559 PO (08:56)
--- NOTE | 2018-07-05 08:58 | Hospitalist Progress Note ---
Subjective Progress Notes Subjective She has complaints of congestion and cough, but feels she is getting better. She reports the cough has been present for 4 weeks. She had no acute events overnight. Patient Complains of: Cardiovascular: No: Chest Pain Respiratory: Cough, Congestion; No: Shortness of Breath Physical Exam Vital Signs Date Time Temp Pulse Resp B/P (MAP) Pulse Ox O2 Delivery O2 Flow Rate FiO2 07/05/18 08:37 74 18 07/05/18 08:30 92 Nasal Cannula 1.5 07/05/18 07:26 98.6 149/80 (103) Intake and Output 07/05/18 07:00 Intake Total 2337 ml Balance 2337 ml Intake Oral 970 ml IV Total 1367 ml # Voids 6 General Appearance: Alert, Awake, No Acute Distress, Afebrile Neuro: No Gross deficits Cardiovascular: Regular Rate and Rhythm Respiratory: No Respiratory Distress, Other (expiratory wheezes, diffuse crackles throughout) Extremities: Warm, Perfused; No Edema Psych: Alert & Oriented X3, Appropriate Mood & Affect Result Diagram: 07/05/18 0831 07/05/18 0831 Assessment and Plan Problems: (1) Bacterial pneumonia Assessment & Plan: She has had increased congestion and is requiring supplemental oxygen. Her chest x-ray shows a possible early pneumonia vs. atelectasis in the left base. She is currently receiving Zosyn for post surgical coverage, but this will likely be discontinued tomorrow. She will transition to oral Augmentin and complete a 7 day course of treatment. Exam Sepsis Risk: No Definite Risk [facility] Jul 05, 2018 08:58
[2018-07-05] MEDS ORDERED: ENOXAPARIN 40 MG/0.4ML SYR SC SCH (09:00)
--- NOTE | 2018-07-05 09:20 | Antimicrobial Stewardship ---
Antimicrobial Time Out Antimicrobial Stewardship MD Service: Other (ED MD/surgeon Zosyn; hospitalist Augmentin) Antimicrobial Used Zosyn 3.375 gm for pre/post-op coverage; changed to po Augmentin to treat suspected pneumonia. Start Date: Jul 03, 2018 Culture Results: No (BC no growth at 1 day) Eligible for PO Conversion Eligable for PO Conversion: Yes Comments Comments Changed to po Augmentin for pneumonia coverage JIM RAMSAY Jul 05, 2018 09:20
--- NOTE | 2018-07-05 11:12 | NUR ---
pt found sleeping laying on right lateral side. I aroused pt to assit with pain, pt was not connected to pulse ox and appeared overall dusky in color. when placed on pulse ox, pt was saturating at 54 percent.
[2018-07-05] MEDS ORDERED: ACET-1966 PO (14:15)
[2018-07-05] MEDS ORDERED: CLOB15CR22 TP (14:15)
--- NOTE | 2018-07-05 14:55 | Medical Nutrition Therapy ---
Nutrition Anthropometrics Height (Inches): 62.00 Height (Calculated Centimeters: 157.822297 Weight (Pounds): 121 Weight (Calculated Kilograms): 55.083 BMI: 22.2 Elder Nutrition Score: Adequate Elder Nutrition Risk Score: 21 Dietary Referral Nutrition Risk Factors: Nutrition Risk Comment: SBO Physical Findings Physical Appearance: WNR Skin Appearance Skin Appearance: Edema Edema Location Modifier: Edema Location: Type of Edema: Degree of Edema: Gastrointestinal Symptoms GI Symtoms: Change in Bowel Pattern Tube Present: Bowel Sounds: Recent Bowel Pattern: Stool Characteristics: Nutrition/Food History Decreased Appetite, N/V Nutritional Diagnosis Nutritional Risk Acuity 1: GI Obstruction Nutritional Risk Acuity 3: OR & > 80 yrs Past Medical History: HTN Nutritional Acuity: 1-High Nutrition Diagnosis: Altered GI Function Nutrition Etiology: Physiological Causes Nutrition Problem/Etiology/Sym: Altered Gastrointestinal (GI) Function related to small bowel obstruction AEB documented reports of N/V. Energy Requirement: 1525 ([place] Je[place]: Actual BW X 1.6) Protein Requirement: 66 (Actual BW Kg X 1.2) Fluid Requirement: 1525 Diet Type: Medical Liquid/GI soft Nutrition Intervention: Incr diet as tolerated Nutrition Monitoring & Eval Nutrition Goals: Eat 75-100% Meal RD Patient Assessment Time: [address] Assessment Type: RD Assessment Patient Nutrition Acuity: 1-High Follow Up Date: Jul 08, 2018 Nutritional Comment: 07/04/18 Pt admitted with partial bowel obstruction possibly d/t left ing hernia. Laparoscopic left ing hernia repair with mesh on 07/04/18. Within normal wt range with BMI of 22.2. Glu 159, GFR 52.8, Alb 4.4. New diet order of clear liquids with no reports of intake or tolerance. Follow intake, diet changes, etc. -DRT 07/05/18 Low H/H, Glu 133. Diet changed to Medical Liquid/GI Soft and consumed 75% of first meal. Follow diet tolerance, labs, etc. -MARTIN SMITH Jul 05, 2018 14:55
[2018-07-05 15:07] VITALS: BP 164/69
--- NOTE | 2018-07-05 15:57 | RADIOLOGY IMAGING REPORT ---
FACILITY: [facility] PATIENT NAME: Hamida De Luna : 1935 MR: [id number] V: EXAM DATE: ORDERING PHYSICIAN: PRIYANKA DAVENPORT TECHNOLOGIST: [place] [facility] [place] Hamida De [place] : 1935 Visit/Account:[id number] Date of Sevice: 07/05/2018 KUB SINGLE VIEW ABDOMEN HISTORY: Small bowel obstruction at a left inguinal hernia COMPARISON: CT 07/03/2018 FINDINGS: Lower chest: Basilar reticular opacities. Abdomen: No free intraperitoneal air. There is a nonobstructive bowel gas pattern. Moderate vascula r calcifications. Bones are osteopenic with scattered degenerative changes in the spine. IMPRESSION: 1. No evidence of small bowel obstruction. Consider repeat CT examination if there is high clinical c oncern. Report Dictated By: Jair Tilley MD at 07/05/2018 3:50 PM Report E-Signed By: Jair Tilley MD at 07/05/2018 3:53 PM WSN:[id number]
[2018-07-05 16:46] VITALS: BP 155/60
[2018-07-05] MEDS ORDERED: AMOX/CLAV 875 MG TAB PO SCH (17:00)
== END 2018-07-05 17:52 | disposition home or self-care (01) | DRG 350 ==
LOC: ER 21:03 → MED 23:28
PROVIDERS: ADMIT Surgery; ATTEND Surgery
PROC: 0YU64JZ Supplement Left Inguinal Region with Synthetic Substitute, Percutaneous Endoscopic Approach (ICD-10-PCS; principal; 2018-07-04 08:06)
DX: K40.30 Unilateral inguinal hernia, with obstruction, without gangrene, not specified as recurrent (principal); J15.9 Unspecified bacterial pneumonia; F17.210 Nicotine dependence, cigarettes, uncomplicated; R09.02 Hypoxemia; I10 Essential (primary) hypertension
CPT/HCPCS: 36415; 71045; 71260; 74018; 74177; 82040; 82247; 82310; 82374; 82435; 82565; 82947; 83605; 83690; 84075; 84132; 84155; 84295; 84450; 84460; 84520; 85025; 85610; 85730; 87040; 87502; 93005; 94640; 96361; 96374; 96375; 99285; C1781; J0131; J1100; J1650; J2001; J2405; J2543; J2704; J3010; J3490; J7030; J7040; J7050; Q9967

== ENCOUNTER → 2018-07-03 | Outpatient (CLI) | payer MEDICARE, BC ==
[~2018-07-03] MED LIST changes: +AMLO-111 PO; -AMLO-96 PO; +AMOX-559 PO; +CLOB15CR22 TP; -HYDR-4309 PO; +HYDR-653 PO; +INDO-23 PO; -INDO50CA92 PO; +LISI-374 PO; -LOSA50TA72 PO; +LOSA50TA80 PO
[2018-07-04 13:19] VITALS: BMI 22.1
== END ==
LOC: AMB 20:42
PROVIDERS: ATTEND Nurse Practitioner
DX: R11.2 Nausea with vomiting, unspecified (principal); R10.9 Unspecified abdominal pain
CPT/HCPCS: A0425; A0429

== ENCOUNTER 2018-07-30 01:11 | Day surgery (SDC) | payer MEDICARE, BC ==
[2018-07-04 13:19] VITALS: Ht 157.5 cm; Wt 54.4 kg
[~2018-07-30] VITALS: Ht 157.5 cm; Wt 54.4 kg
[~2018-07-30 01:11] MED LIST changes: -AMLO-111 PO; +AMLO-125 PO; +AMOX-559 PO; +CLOB15CR22 TP; +LISI-374 PO
[2018-07-30] MEDS ORDERED: PROPOFOL EMUL(*) 10MG/ML 20 ML 20 ML ONE (08:07)
[2018-07-30 11:26] VITALS: BP 164/89
[2018-07-30] MEDS ORDERED: OPHTHALMIC PROCEDURE 1 OD PRN (12:00)
[2018-07-30] MEDS ORDERED: OPHTHALMIC PROCEDURE 2 OD PRN ×2 (12:00)
[2018-07-30] MEDS ORDERED: NORMOSOL R SOLN(*) 1000 ML BAG 1,000 ML IV PRN (12:20)
[2018-07-30] MEDS ORDERED: LIDOCAINE/SOD BICARB 8.4% SYR ID ONE (12:20)
[2018-07-30] MEDS ORDERED: acetaZOLAMIDE 500 MG CAPCR PO ONE (13:00)
[2018-07-30 13:15] VITALS: BP 196/100
--- NOTE | 2018-07-30 16:29 | FOSTER RIGHT EYE CATARACT ---
EVENT DATE: July 30, 2018 SURGEON: Rich Cortes MD ANESTHESIOLOGIST: Tommie Avelar MD ANESTHESIA: MAC PREOPERATIVE DIAGNOSIS Cataract, right eye. POSTOPERATIVE DIAGNOSIS Cataract, right eye. PROCEDURE Phacoemulsification of cataractous lens with implantation of an intraocular lens, right eye. DESCRIPTION OF PROCEDURE The risks and benefits and alternatives were carefully discussed with the patient, and preoperative consent was obtained. The patient was brought to the operating room. After receiving topical anesthetic, the patient was prepped and draped using sterile technique in the usual manner. A stab incision was made, and the chamber was inflated with preservative-free lidocaine. DuoVisc was injected to inflate the chamber. A 2.2 mm blade was used to enter the anterior chamber. Utrata forceps were used to tear a circular capsulorrhexis. BSS was used to hydrodissect the nucleus. Phaco tip was introduced, and the nucleus was chopped into four quadrants. Each quadrant was removed. The I/A tip was used to remove the cortex. The bag was inflated with ProVisc. The intraocular lens was injected into the capsular bag. The I/A tip was used to remove the ProVisc. The wound was found to be watertight. Vigamox, Nevanac, and Maxitrol ointment were placed in the patient's eye. The patient's eye was patched, and the patient was taken to the recovery room in stable condition. The patient was examined in the recovery room and found to be stable prior to release from the hospital. JESSICA
== END 2018-07-30 13:40 | disposition home or self-care (01) ==
LOC: OR 01:11
PROVIDERS: ATTEND Ophthalmology
DX: H25.11 Age-related nuclear cataract, right eye (principal); I10 Essential (primary) hypertension
CPT/HCPCS: 66984; A9270; J2704; V2632

== ENCOUNTER → 2019-01-12 | Outpatient (CLI) | payer MEDICARE, BC ==
[2018-07-04 13:19] VITALS: BMI 22.1
--- NOTE | 2019-01-12 14:47 | RADIOLOGY IMAGING REPORT ---
FACILITY: [facility] - [place] PATIENT NAME: Hamida De Luna : 1935 MR: [id number] V: [id number] EXAM DATE: ORDERING PHYSICIAN: ATUL ACOSTA TECHNOLOGIST: Location: [facility] - [place] Patient: Hamida De Luna : 1935 Visit/Account:[id number] Date of Sevice: 01/12/2019 EXAMINATION: PA and Lateral Chest 01/12/2019 1:34 PM HISTORY: Cough COMPARISON: 07/04/2018 FINDINGS: Cardiomediastinal contours: Normal and stable heart size. Atherosclerotic aorta. Lungs and pleura: Stable reticular prominence in the lungs. No focal consolidation. Peripheral hazy density on the right is less evident than on the previous. Pleural spaces remain clear. Bones/soft tissues: Osteopenia with accentuated thoracic kyphosis. Mild L1 vertebral wedging. IMPRESSION: Stable diffuse reticular prominence. No acute cardiopulmonary finding. Report Dictated By: Tay Jama MD at 01/12/2019 2:35 PM Report E-Signed By: Tay Jama MD at 01/12/2019 2:40 PM WSN:[id number]
== END ==
LOC: RAD 13:29
PROVIDERS: ATTEND Family Medicine
DX: R05 Cough (principal)
CPT/HCPCS: 71046